=== PATIENT | female | born 1950 ===

== ENCOUNTER 2018-04-06 10:26 | Outpatient (CLI) | payer OTHER ==
[~2018-04-06 10:26] MED LIST: ABILIFY5 MG PO; APRESOLINE 10MG10 MG PO; CLONAZEPAM2 M1 PO; CYMBALTA60 MG PO; DIGOX125 MCG PO; FAMOTIDINE40 MG PO; FLECAINIDE ACET50 MG PO; LEVO-T125 MCG PO; METFORMIN HCL500 MG PO; NORVASC2.5 MG PO; OMEPRAZOLE40 MG PO; OXYBUTYNIN CHLO15 MG PO; SIMVASTATIN40 MG PO; TOPAMAX50 MG PO
== END 2018-04-06 10:35 | disposition home or self-care (01) ==
LOC: NUCLEAR 10:26
DX: R00.8 Other abnormalities of heart beat (principal); R94.31 Abnormal electrocardiogram [ECG] [EKG]